=== PATIENT | female | born 1990 | race Caucasian/White ===

== ENCOUNTER 2022-10-14 09:13 | Outpatient (CLI) | payer BC | END 2022-10-14 09:14 | disposition home or self-care (01) | LOC: CSHULT 09:13 | PROVIDERS: ATTEND Otolaryngology Plastic Surgery within the Head & Neck | DX: E07.9 Disorder of thyroid, unspecified (principal); E04.2 Nontoxic multinodular goiter | CPT/HCPCS: 76536 ==

== ENCOUNTER 2023-06-05 09:01 | Outpatient (CLI) | payer BC | END 2023-06-05 09:02 | disposition home or self-care (01) | LOC: CSHMAMMO 09:01 | PROVIDERS: ATTEND Nurse Practitioner Family | DX: N64.4 Mastodynia (principal); I88.9 Nonspecific lymphadenitis, unspecified; Z98.82 Breast implant status | CPT/HCPCS: 77066; G0279 ==

== ENCOUNTER 2023-10-27 13:49 | Outpatient (CLI) | payer BC | END 2023-10-27 13:50 | disposition home or self-care (01) | LOC: CSHULT 13:49 | PROVIDERS: ATTEND Otolaryngology Plastic Surgery within the Head & Neck | DX: E07.9 Disorder of thyroid, unspecified (principal); E04.2 Nontoxic multinodular goiter | CPT/HCPCS: 76536 ==

== ENCOUNTER 2024-11-01 14:28 | Outpatient (CLI) | payer BC | END 2024-11-01 14:29 | disposition home or self-care (01) | LOC: CSHULT 14:28 | PROVIDERS: ATTEND Otolaryngology Plastic Surgery within the Head & Neck | DX: E04.1 Nontoxic single thyroid nodule (principal); E04.2 Nontoxic multinodular goiter | CPT/HCPCS: 76536 ==